=== PATIENT | female | born 1995 ===

== ENCOUNTER 2021-06-28 16:35 | Emergency (ER) | payer OTHER ==
[2021-06-28 17:56] VITALS: BP 108/71; PULSE 66; RESP 18; TEMP 98.8
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
== END 2021-06-28 19:00 | disposition left against medical advice (07) ==
LOC: EC 16:35
DX: O9A.212 Injury, poisoning and certain other consequences of external causes complicating pregnancy, second trimester (principal); O26.892 Other specified pregnancy related conditions, second trimester; R10.9 Unspecified abdominal pain; Z3A.16 16 weeks gestation of pregnancy; Y04.0XXA Assault by unarmed brawl or fight, initial encounter
CPT/HCPCS: 76801; 99284